=== PATIENT | female | born 1960 | race Caucasian/White ===

== ENCOUNTER 2018-06-20 07:45 | Outpatient (CLI) | payer OTHER | END 2018-06-20 12:25 | disposition home or self-care (01) | LOC: SONOGRAMA 07:45 | DX: E04.1 Nontoxic single thyroid nodule (principal) ==

== ENCOUNTER 2020-11-25 11:55 | Outpatient (CLI) | payer OTHER | END 2020-11-25 12:23 | disposition home or self-care (01) | LOC: SONOGRAMA 11:55 | PROVIDERS: ATTEND Pathology Anatomic Pathology & Clinical Pathology | DX: E04.2 Nontoxic multinodular goiter (principal) ==